=== PATIENT | female | born 2000 | race Two or more races ===

== ENCOUNTER 2019-07-05 23:34 | Emergency (ER) | payer OTHER ==
--- NOTE | 2019-07-06 | ER Document Report ---
ED Medical Screen (RME) - General Chief Complaint: Urinary Problem Stated Complaint: URINARY PROBLEM,CRAMPING Time Seen by Provider: 07/05/19 23:58 Notes: 26-year-old female presents with dysuria, lower pelvic cramping, decreased urination, right flank pain for 2 days. Patient states associated nausea. Denies fever. Abdomen soft nontender. No CVA tenderness. I have greeted and performed a rapid initial assessment of this patient. A [facility] prehensive ED assessment and evaluation of the patient, analysis of test results and completion of the medical decision making process with be conducted by additional ED providers.
[2019-07-06 00:36] LABS: APPEARANCE,URINE CLEAR; BILIRUBIN,URINE NEGATIVE (NEGATIVE); COLOR,URINE YELLOW; GLUCOSE, URINE NEGATIVE (NEGATIVE); KETONES,URINE NEGATIVE (NEGATIVE); PROTEIN,URINE NEGATIVE (NEGATIVE); URINE SPECIFIC GRAVITY 1.025; UROBILINOGEN,URINE NEGATIVE mg/dL (<2.0)
[2019-07-06] MEDS ORDERED: PHENAZOPYRIDINE HCL 200 MG TABLET PO ONE (08:04)
--- NOTE | 2019-07-06 08:10 | ER Document Report ---
ED General - General Chief Complaint: Urinary Problem Stated Complaint: URINARY PROBLEM,CRAMPING Time Seen by Provider: 07/05/19 23:58 TRAVEL OUTSIDE OF THE [place] IN LAST 30 DAYS: No - HPI Notes: Patient is a very pleasant 18-year-old female who presents emergency department for evaluation of dysuria, urinary hesitation, the feeling like she is not emptying her bladder. She states is been going on for 2 days. She describes a cramping pain in her suprapubic region. She denies any vaginal discharge. She is in a monogamous relationship with her , who is currently deployed. She denies any sores in the area. She denies any back pain. No numbness or tingling. No incontinence. No saddle anesthesia. No fevers or chills, no nausea or vomiting. - Related Data Allergies/Adverse Reactions: No Known Allergies Allergy (Unverified 07/06/19 00:04) Home Medications: None Past Medical History - General Information source: Patient - Social History Smoking Status: Current Some Day Smoker Chew tobacco use (# tins/day): No Frequency of alcohol use: None Drug Abuse: None Family History: DM Patient has suicidal ideation: No Patient has homicidal ideation: No Review of Systems - Review of Systems Genitourinary: See HPI -: Yes All other systems reviewed and negative Physical Exam - Vital signs Vitals: Temp Pulse Resp BP Pulse Ox 98.8 F 76 18 139/83 H 99 07/05/19 23:57 07/05/19 23:57 07/05/19 23:57 07/05/19 23:57 07/05/19 23:57 - Notes Notes: Vital signs reviewed, please refer to chart. Head is normocephalic, atraumatic. Pupils equal round, reactive to light. Neck is supple without meningismus. Heart is regular rate and rhythm. Lungs are clear to auscultation bilaterally. Abdomen is soft, nontender, normoactive bowel sounds throughout. No CVA tenderness. Extremities without cyanosis, clubbing. Posterior calves are nontender. Peripheral pulses are equal. Skin is warm and dry. Patient is awake, alert, neurological exam is nonfocal. Course - Re-evaluation Re-evalutation: 07/06/19 08:06 Patient presents to the emergency department for evaluation. She has some dysuria. She denies any constitutional symptoms. She has no vaginal discharge. She has no signs of cauda equina. She has no incontinence, no back pain, no weakness. Her urinalysis fails to reveal any signs of bleeding or infection. At this point I do not have a clear etiology for her symptoms. I will give her 2 days of Pyridium. She is told she needs to stay hydrated. She is to return or follow-up with her primary care provider if her symptoms persist, certainly she is to return here with worsening. She voiced understanding was discharged. - Vital Signs Vital signs: Temp Pulse Resp BP Pulse Ox 98.5 F 75 16 138/72 H 100 07/06/19 04:49 07/06/19 04:49 07/06/19 04:49 07/06/19 04:49 07/06/19 04:49 - Laboratory Laboratory results interpreted by me: 07/06/19 00:05 Urine Ascorbic Acid 40 H Discharge - Discharge Clinical Impression: Dysuria Condition: Stable Disposition: HOME, SELF-CARE Instructions: Urinary Anesthetic Agent ([facility]) Additional Instructions: No clear cause is found for your symptoms today. Please take Pyridium as directed. Stay well-hydrated. Follow-up with your primary care provider this week. If your symptoms worsen, return immediately to the emergency department for evaluation.
[2019-07-06 08:19] VITALS: BP 115/74
== END 2019-07-06 08:21 | disposition home or self-care (01) ==
LOC: ER 23:34
DX: R30.0 Dysuria (principal); R39.11 Hesitancy of micturition; R10.30 Lower abdominal pain, unspecified; F17.200 Nicotine dependence, unspecified, uncomplicated
CPT/HCPCS: 81025; 81001; J3490

== ENCOUNTER 2019-10-18 21:43 | Emergency (ER) | payer OTHER ==
[2019-10-18] MEDS ORDERED: ACETAMINOPHEN 325 MG TABLET PO ONE (22:56)
--- NOTE | 2019-10-18 23:42 | RADIOLOGY REPORT (SQ) ---
EXAM DESCRIPTION: XR WRIST 3 OR MORE VIEWS COMPLETED DATE/TME: 10/18/2019 22:55 CLINICAL HISTORY: 18 years, Female, PAIN COMPARISON: None. NUMBER OF VIEWS: 3 TECHNIQUE: 3 views right wrist LIMITATIONS: None. FINDINGS: Negative for acute fracture or dislocation. Soft tissues are unremarkable IMPRESSION: Negative exam copyright 2011 [employer]- All Rights Reserved
[2019-10-19] MEDS ORDERED: IBUPROFEN 600 MG TABLET PO ONE (01:33)
--- NOTE | 2019-10-19 01:38 | ER Document Report ---
ED Hand/Wrist Injury - General Chief Complaint: Wrist Pain Stated Complaint: RIGHT WRIST PAIN Time Seen by Provider: 10/19/19 01:30 Notes: CHIEF COMPLAINT: Right wrist pain for 1 week HPI: 18-year-old [id number] female with right wrist pain on the dorsal aspects for 1 week without trauma. Does type a lot at work. No specific injury. No swelling. Is taken no medications for her symptoms. Denies numbness or tingling in the fingertips. Denies elbow discomfort. Denies other injuries or complaints ROS: See HPI - all other systems were reviewed and are otherwise negative Constitutional: no fever Integumentary: no rash Allergy: no hives Musculoskeletal: + extremity pain or swelling Neurological: no numbness/tingling, no weakness MEDICATIONS: I agree with the patient medications as charted by the RN. ALLERGIES: I agree with the allergies as charted by the RN. PAST MEDICAL HISTORY/PAST SURGICAL HISTORY: Reviewed and agree as charted by RN. SOCIAL HISTORY: Reviewed and agree as charted by RN. FAMILY HISTORY: No significant familial comorbid conditions directly related to patient complaint EXAM: Reviewed vital signs as charted by RN. CONSTITUTIONAL: Alert and oriented and responds appropriately to questions. Well-appearing; well-nourished HEAD: Normocephalic; atraumatic EYES: Conjunctivae clear, sclerae non-icteric ENT: normal nose; no rhinorrhea; moist mucous membranes NECK: Supple without meningismus CARD: symmetric distal pulses RESP: Normal chest excursion without splinting or tachypnea ABD/GI: non-distended. BACK: The back appears normal EXT: Normal ROM in all joints; no cyanosis, no effusions, no edema. No visible bruising or soft tissue swelling to the right wrist. Patient over the fully flex and extend the fingers of the right hand as well as abduct thumb. Radial and ulnar pulses are present on the right wrist. No direct snuffbox tenderness. Sensation is intact in the fingertips with capillary refill less than 3 seconds. Patient with increased discomfort on the ulnar aspect of the right wrist with extension of the hand and wrist but not with flexion. Mild tenderness on palpation of the dorsal aspect of the right wrist SKIN: Normal color for age and race; warm; dry; good turgor; no acute lesions noted NEURO: Moves all extremities equally; Motor and sensory function intact PSYCH: The patient's mood and manner are appropriate. Grooming and personal hygiene are appropriate. MDM: 18-year-old female with possibly a mild tendinitis of the right wrist. We will place her in a wrist plan for 3 to 5 days this was discussed with the patient. Anti-inflammatories ice orthopedic referral. X-ray negative for fracture TRAVEL OUTSIDE OF THE [place] IN LAST 30 DAYS: No - Related Data Allergies/Adverse Reactions: No Known Allergies Allergy (Verified 10/18/19 22:50) Home Medications: CONTROL. DEPRESSION/ANXIETY DISORDER Past Medical History - Social History Smoking Status: Current Every Day Smoker Frequency of alcohol use: None Drug Abuse: None Family History: DM Patient has homicidal ideation: No Psychiatric Medical History: Reports: Hx Depression Physical Exam - Vital signs Vitals: Temp Pulse Resp BP Pulse Ox 98.6 F 70 16 122/58 L 100 10/18/19 21:52 10/18/19 21:52 10/18/19 21:52 10/18/19 21:52 10/18/19 21:52 Course - Vital Signs Vital signs: Temp Pulse Resp BP Pulse Ox 98.6 F 70 16 122/58 L 100 10/18/19 22:50 10/18/19 21:52 10/18/19 21:52 10/18/19 21:52 10/18/19 21:52 Discharge - Discharge Clinical Impression: Tendinitis of right wrist Condition: Stable Disposition: HOME, SELF-CARE Instructions: Tendonitis ([facility]) Additional Instructions: Use the splint for the next 3 to 5 days for comfort do not sleep in the splint. Ice the wrist twice daily for 5 to 10 minutes at a time do not place ice directly on the skin. Take the anti-inflammatories as prescribed. Follow-up closely with orthopedics for further evaluation and treatment if the wrist pain continues. The x-ray tonight was negative for fracture or broken bone Prescriptions: Ibuprofen [Motrin 600 Mg Tablet] 600 mg PO Q6H #15 tablet
[2019-10-19 01:57] VITALS: BP 117/76
== END 2019-10-19 01:50 | disposition home or self-care (01) ==
LOC: ER 21:43
DX: M77.8 Other enthesopathies, not elsewhere classified (principal); M25.531 Pain in right wrist; F17.200 Nicotine dependence, unspecified, uncomplicated; F32.9 Major depressive disorder, single episode, unspecified
CPT/HCPCS: 99283